=== PATIENT | female | born 1940 | race Caucasian/White ===

== ENCOUNTER 2017-01-30 09:31 | Emergency (ER) | payer OTHER ==
[~2017-01-30] VITALS: Ht 172.7 cm; Wt 86.2 kg
--- NOTE | 2017-01-30 10:01 | ED GENERAL ADULT ---
History of Present Illness General Chief Complaint: Lower Extremity Injury Stated Complaint: R KNEE INJURY S/P FALL Source: patient Exam Limitations: no limitations Vital Signs & Intake/Output Vital Signs & Intake/Output ED Intake and Output 01/31 0000 01/30 1200 Intake Total Output Total Balance Patient 190 lb Weight Allergies Coded Allergies: Penicillins (Severe, HIVES 01/30/17) Reconcile Medications Alprazolam 0.5 MG TABLET 1 TAB PO BIDP PRN ANXIETY (Reported) Spironolact/Hydrochlorothiazid (Spironolactone-Hctz 25-25 Tab) 25 MG-25 MG TABLET 1 TAB PO DAILY HEART (Reported) Triage Note: PT PRESENTS TO ER C/O OF RIGHT KNEE PAIN. PT STATES SHE FEELS LIKE LAST WEEK WHEN SHE SLID ON THE PAVEMENT SHE FELT LIKE SHE TWISTED HER FOOT. PT STATES SINCE THEN HER RIGHT KNEE HAS BEEN BOTHERING HER. Triage Nurses Notes Reviewed? yes Onset: Abrupt Duration: week(s): Timing: recent history HPI: 01/30/17 76-year-old female presents to the emergency department for right knee pain and swelling. The patient states she fell approximately one week ago and her right knee actually bounced and dragged on the ground. She got up and seemed to be okay and now she has swelling to the right knee. It is only minimally tender. She has free range of motion. X-ray shows arthritis but no fracture she does have a large prepatellar effusion. The onset of the symptoms was abrupt, the duration has been 7 days, the severity is significant; as her symptoms required her to come to the emergency department for care Past History Travel History Traveled to [place] past 21 day No Medical History Any Pertinent Medical History? see below for history Cardiovascular: hypertension Musculoskeletal: ARTHRITIS Surgical History Surgical History: non-contributory Psychosocial History What is your primary language [place] Citizen Tobacco Use: Quit >30 days ago Family History Hx Contributory? No Review of Systems Review of Systems Constitutional: Denies: fever. EENTM: Reports: no symptoms. Respiratory: Reports: no symptoms. Cardiovascular: Reports: no symptoms. GI: Reports: no symptoms. Genitourinary: Reports: no symptoms. Musculoskeletal: Reports: see HPI. Skin: Reports: no symptoms. Neurological/Psychological: Reports: no symptoms. Hematologic/Endocrine: Denies: bruising, bleeding. Immunologic/Allergic: Reports: no symptoms. Physical Exam Physical Exam General Appearance: well developed/nourished, alert, awake, anxious, mild distress Head: atraumatic, normal appearance Eyes: Bilateral: normal appearance, PERRL, EOMI. Ears, Nose, Throat: normal pharynx, normal ENT inspection Neck: normal inspection, supple Respiratory: normal breath sounds, chest non-tender, no respiratory distress Cardiovascular: regular rate/rhythm Back: normal range of motion Extremities: swelling, tenderness Neurologic/Psych: no motor/sensory deficits, awake, alert, oriented x 3, normal gait Skin: intact, normal color, warm/dry Comments: the right knee has a large prepatellar effusion. There is free range of motion of the right knee. There is no redness to the right knee. There is no increased warmth to the right knee. I discussed the risks and benefits of aspiration with the patient including the risk Of septic bursitis. The patient consented to the procedure. Under sterile technique and local anesthesia, utilizing 5 mL of lidocaine without epinephrine. An 18-gauge needle was placed into the prepatellar bursa. 8 mL of иван blood was returned. Sterile dressing was applied. The patient will weight-bear as tolerated, Take Tylenol for pain. She will follow-up with orthopedics this week or return to the emergency department if worse. Core Measures ACS in differential dx? No CVA/TIA Diagnosis: No Severe Sepsis Present: No Septic Shock Present: No Progress Differential Diagnoses I considered the following diagnoses in my evaluation of the patient: [Septic arthritis, septic bursitis, prepatellar bursitis, hemorrhagic bursitis, ligament injury cellulitis,] Plan of Care: Orders Procedure Date/time Status XRY-KNEE COMPLETE RIGHT 01/30 934 Active Initial ED EKG: none Departure Departure Disposition: HOME OR SELF CARE Condition: Stable Clinical Impression Primary Impression: Hemorrhagic prepatellar bursitis of left knee Referrals: LIYAH CARTER MD (PCP/Family) Departure Forms: Customer Survey General Discharge Information Comments PATIENT: OLGA LIDIA APONTE PRESENT AGE: 76 PATIENT ACCOUNT NO: [id number] : 42 LOCATION: [facility] ORDERING PHYSICIAN: FER LUO DO SERVICE DATE: 01/30/17 EXAM TYPE: RAD - XRY-KNEE COMPLETE RIGHT EXAMINATION: XR KNEE, RIGHT CLINICAL INFORMATION: Right knee pain. COMPARISON: None TECHNIQUE: AP, lateral, and both oblique views of the right knee. FINDINGS: No acute fracture or malalignment. Bones are osteopenic. Minimal tricompartmental degenerative arthritis is characterized by tiny marginal osteophytes. No joint space narrowing. Trace effusion. Marked soft tissue swelling is seen in the prepatellar region, likely with a associated fluid collection. IMPRESSION: 1. Marked prepatellar soft tissue swelling with probable superimposed fluid collection, possibly a hematoma or seroma. Severe bursitis is less likely. 2. Minimal tricompartmental degenerative arthritis. No acute fracture or malalignment. DICTATED BY: KATIE PRIETO MD DATE/TIME DICTATED:01/30/171003 PURCHASE REQUEST EDITOR:CURTIS DATE/TIME TRANSCRIBED:01/30/171003 CONFIDENTIAL, DO NOT COPY WITHOUT APPROPRIATE AUTHORIZATION. <Electronically signed in Other Vendor System> SIGNED BY: KATIE PRIETO MD 01/30/17 1011 01/30/17 12:12 PM Procedure - drainage of prepatellar bursitis Indication patient comfort resolution of possible seroma Procedure under sterile technique and local anesthesia 2 mL of 1% lidocaine was infiltrated in the prepatellar area. An 18-gauge needle was inserted and 8 mL of иван blood was aspirated from the prepatellar space. The patient gave verbal consent and the risk of infection was explained. She will monitor the area closely weight-bear as tolerated take Tylenol as needed for pain and follow up the orthopedist this week Critical Care Note Critical Care Note Critical Care Time: non-applicable
--- NOTE | 2017-01-30 10:11 | RADIOLOGY REPORT ---
EXAMINATION: XR KNEE, RIGHT CLINICAL INFORMATION: Right knee pain. COMPARISON: None TECHNIQUE: AP, lateral, and both oblique views of the right knee. FINDINGS: No acute fracture or malalignment. Bones are osteopenic. Minimal tricompartmental degenerative arthritis is characterized by tiny marginal osteophytes. No joint space narrowing. Trace effusion. Marked soft tissue swelling is seen in the prepatellar region, likely with a associated fluid collection. IMPRESSION: 1. Marked prepatellar soft tissue swelling with probable superimposed fluid collection, possibly a hematoma or seroma. Severe bursitis is less likely. 2. Minimal tricompartmental degenerative arthritis. No acute fracture or malalignment.
[2017-01-30] MEDS ORDERED: ALPRAZOLAM0.5 M4 PO (10:26)
[2017-01-30] MEDS ORDERED: SPIRONOLACTONE1 EACH PO (10:26)
[2017-01-30 12:36] VITALS: BP 142/80
== END 2017-01-30 12:37 ==
LOC: ERH 09:31
DX: M70.41 Prepatellar bursitis, right knee (principal)
CPT/HCPCS: 73562-RT